=== PATIENT | female | born 1945 | race Caucasian/White ===

== ENCOUNTER 2019-05-22 12:51 | Emergency (ER) | payer OTHER, BC ==
[~2019-05-22] VITALS: Ht 152.4 cm; Wt 44.1 kg
[2019-05-22 13:06] VITALS: Ht 152.4 cm; Wt 44.1 kg
[2019-05-22 15:37] VITALS: BP 122/63
== END 2019-05-22 15:37 | disposition home or self-care (01) ==
LOC: ED 12:51
DX: S32.048A Other fracture of fourth lumbar vertebra, initial encounter for closed fracture (principal); M25.562 Pain in left knee; Z98.890 Other specified postprocedural states; W18.39XA Other fall on same level, initial encounter; Y93.89 Activity, other specified; Y92.89 Other specified places as the place of occurrence of the external cause; Y99.8 Other external cause status